=== PATIENT | female | born 1975 | race Caucasian/White ===

== ENCOUNTER 2017-08-05 19:50 | Emergency (ER) | payer MEDICAID ==
--- NOTE | 2017-08-05 20:11 | ED Physician Chart ---
ED Chief Complaint/HPI - Patient Information Date Seen:: 08/05/17 Time Seen:: 20:11 Chief Complaint:: LEFT FOOT PAIN History of Present Illness:: THIS IS A 41 YR OLD FEMALE WHO IS CONCERNED ABOUT HER LEFT FOOT SWELLING AND HURTING WITHOUT AN INJURY. THE FOOT IS NOT RED OR HOT AND THERE ARE NO OPEN WOUNDS NOTED ON THE LEFT FOOT. SHE THINKS THAT SHE MIGHT HAVE GOUT. SHE HAS A HISTORY OF HYPERTENSION BUT STOPPED TAKING HER BLOOD PRESSURE MEDICATION. SHE ADMITS TO SMOKING. Vitals:: Vital Signs - 8 hr 08/05/17 19:55 Temp 98.4 F HR 93 RR 18 BP 131/83 O2 Sat % 97 Historian:: Patient Review:: Nurse's Note Reviewed ED Review of Systems - Review of Systems General/Constitutional: No fever, No chills, No weight loss, No weakness, No diaphoresis, No edema, No loss of appetite Skin: No skin lesions, No rash, No bruising Head: No headache, No light-headedness Eyes: No loss of vision, No pain, No diplopia ENT: No earache, No nasal drainage, No sore throat, No tinnitus Neck: No neck pain, No swelling, No thyromegaly, No stiffness, No mass noted Cardio Vascular: No chest pain, No palpitations, No PND, No orthopnea, No edema Pulmonary: No SOB, No cough, No sputum, No wheezing GI: No nausea, No vomiting, No diarrhea, No pain, No melena, No hematochezia, No constipation, No hematemesis G/U: No dysuria, No frequency, No hematuria Musculoskeletal: No bone or joint pain, No back pain, No muscle pain, Other ( LEFT FOOT PAIN) Endocrine: No polyuria, No polydipsia Psychiatric: No prior psych history, No depression, No anxiety, No suicidal ideation Hematopoietic: No bruising, No lymphadenopathy Allergic/Immuno: No urticaria, No angioedema Neurological: No syncope, No focal symptoms, No weakness, No paresthesia, No headache, No seizure, No dizziness, No confusion, No vertigo ED Past Medical History - Past Medical History Obtainable: Yes Past Medical History: HTN, Other (OBESE) Family History: None Social History: Smoker, No Alcohol, No Drug Use Surgical History: other (LEFT KNEE SURGERY) Psychiatricy History: None Family Medical History - Family Member Father History Unknown: Yes Ethnicity: Non- Living Status: Still Living Hx Family Cancer: No Hx Family Coronary Artery Disease: Yes Hx Family Congestive Heart Failure: No Hx Family Hypertension: Yes Hx Family Stroke: No Hx Family Diabetes: Yes Hx Family Seizures: No Hx Family Dementia: No Hx Family AIDS: No Hx Family HIV: No Hx Family COPD: No Hx Family Hepatitis: No Hx Family Psychiatric Problems: No Hx Family Tuberculosis: No ED Physical Exam - Physical Examination General/Constitutional: Awake, Well-developed, well-nourished, Alert, No distress, GCS 15, Non-toxic appearing, Ambulatory Other Gen/Cons comments:: OBESE Head: Atraumatic Eyes: Lids, conjuctiva normal, PERRL, EOMI Skin: Nl inspection, No rash, No skin lesions, No ecchymosis, Well hydrated, No lymphadenopathy ENMT: External ears, nose nl, Nasal exam nl, Lips, teeth, gums nl Neck: Nontender, Full ROM w/o pain, No JVD, No nuchal rigidity, No bruit, No mass, No stridor Respiratory: Nl effort/Exclusion, Clear to Auscultation, No Wheeze/Rhonchi/Rales Cardio Vascular: RRR, No murmur, gallop, rubs, NL S1 S2 GI: No tenderness/rebounding/guarding, No organomegaly, No hernia, Normal BS's, Nondistended, No mass/bruits, No McBurney tenderness : No CVA tenderness Extremities: No tenderness or effusion, Full ROM, normal strength in all extremities, No edema (SMALL AMOUNT OF LEFT FOOT SWELLING), Normal digits & nails Neuro/Psych: Alert/oriented, DTR's symmetric, Normal sensory exam, Normal motor strength, Judgement/insight normal, Mood normal, Normal gait, No focal deficits Misc: Normal back, No paraspinal tenderness ED Assessment - Assessment General Assessment: LEFT FOOT PAIN ED Septic Shock - . Is Septic Shock (SBP<90, OR Lactate>4 mmol\L) present?: No - <6hrs of presentation: Vital Signs: Vital Signs - 8 hr 08/05/17 19:55 Temp 98.4 F HR 93 RR 18 BP 131/83 O2 Sat % 97 ED Reassessment (Disposition) - Reassessment Reassessment Condition:: Improved - Diagnosis Diagnosis:: LEFT FOOT PAIN - Patient Disposition Discharge/Transfer:: Elope/AWOL (THE PATIENT ELOPED BEFORE TREATMENT COULD BE COMPLETE.)
[2017-08-05 20:20] LABS: % BASOPHILS 0.3 % (0.0-2.0); % EOSINOPHILS 4.9 % (0.0-5.0); % LYMPHOCYTES 21.1 % (20.0-50.0); % MONOCYTES 4.9 % (2.0-10.0); % NEUTROPHILS 68.8 % (40.0-80.0); EOSINOPHILE ABSOLUTE 0.6 Th/cmm (0.1-0.4); HEMATOCRIT 42.2 % (41.0-60); HEMOGLOBIN 14.1 gm/dL (12-16); LYMPHOCYTE ABSOLUTE 2.4 Th/cmm (1.5-3.0); MEAN CELL VOLUME 85.8 fl (81-100); MEAN CORPUSCULAR HEMOGLOBIN 28.6 pg (27.0-31.0); MEAN CORPUSCULAR HGB CONC 33.3 pg (28.0-36.0); MEAN PLATELET VOLUME 7.6 fl; MONOCYTE ABSOLUTE 0.6 Th/cmm (0.3-1.0); NEUTROPHILE ABSOLUTE 7.8 Th/cmm (1.8-8.0); PLATELET COUNT 390 Th/cmm (150-400); RED BLOOD COUNT 4.92 Mil/cmm (3.80-5.10); RED CELL DISTRIBUTION WIDTH 13.5 % (11.5-20.0); WHITE BLOOD COUNT 11.4 Th/cmm (4.8-10.8)
[2017-08-05 20:36] LABS: ALB/GLOB RATIO 1.4 (1.0-1.8); ALBUMIN 4.3 gm/dL (3.7-5.3); ALKALINE PHOSPHATASE 75 U/L (34-104); ANION GAP 13.7 (7.0-16.0); BILIRUBIN,TOTAL 0.5 mg/dL (0.3-1.0); BUN - UREA NITROGEN 20 mg/dL (7-25); CALCIUM SERUM 9.6 mg/dL (8.6-10.3); CARBON DIOXIDE 23.7 mEq/L (21.0-31.0); CHLORIDE 103 mEq/L (98-107); CREATININE - SERUM 0.7 mg/dL (0.6-1.2); GFR AFRICAN-AMERICAN > 60.0 ml/min (>90); GFR NON AFRICAN-AMERICAN > 60.0 ml/min; GLUCOSE 116 mg/dL (70-105); POTASSIUM SERUM 3.4 mEq/L (3.5-5.1); SGOT 20 U/L (13-39); SGPT/ALT 18 U/L (7-52); SODIUM SERUM 137 mEq/L (136-145); TOTAL PROTEIN,SERUM 7.3 gm/dL (6.0-8.3); URIC ACID 7.6 mg/dL (2.3-6.6)
[2017-08-05] MEDS ORDERED: Sodium Chloride 0.9% 1,000 ML IV ONE (20:50)
== END 2017-08-05 20:50 | disposition left against medical advice (07) ==
LOC: ER 19:50
DX: M79.672 Pain in left foot (principal); I10 Essential (primary) hypertension; F17.200 Nicotine dependence, unspecified, uncomplicated; Z88.1 Allergy status to other antibiotic agents
CPT/HCPCS: 36415-UA; 80053-TC; 84550-TC; 85025-TC; Z7502

== ENCOUNTER 2017-09-09 19:35 | Emergency (ER) | payer MEDICAID ==
--- NOTE | 2017-09-09 21:26 | ED Physician Chart ---
ED Chief Complaint/HPI - Patient Information Date Seen:: 09/09/17 Time Seen:: 20:10 Chief Complaint:: LEFT ANKLE PAIN History of Present Illness:: THIS IS A 41 YR OLD FEMALE WITH RECURRENT LEFT ANKLE SWELLING AND PAIN. SHE IS CONCERNED BECAUSE IT GOT WORSE THIS PM. SHE DENIES ANY OLD OR RECENT TRAUMA. SHE DENIES HAVING ARTHRITIS. Allergies:: Allergies Allergy/AdvReac Type Severity Reaction Status Date / Time erythromycin base Allergy Verified 08/05/17 20:07 Vitals:: Vital Signs - 8 hr 09/09/17 09/09/17 19:54 21:00 Temp 98.4 F 97.8 F HR 99 88 RR 17 17 BP 146/95 144/89 O2 Sat % 98 98 Historian:: Patient Review:: Nurse's Note Reviewed, Old Chart Reviewed ED Review of Systems - Review of Systems General/Constitutional: No fever, No chills, No weight loss, No weakness, No diaphoresis, No edema, No loss of appetite Skin: No skin lesions, No rash, No bruising Head: No headache, No light-headedness Eyes: No loss of vision, No pain, No diplopia ENT: No earache, No nasal drainage, No sore throat, No tinnitus Neck: No neck pain, No swelling, No thyromegaly, No stiffness, No mass noted Cardio Vascular: No chest pain, No palpitations, No PND, No orthopnea, No edema Pulmonary: No SOB, No cough, No sputum, No wheezing GI: No nausea, No vomiting, No diarrhea, No pain, No melena, No hematochezia, No constipation, No hematemesis G/U: No dysuria, No frequency, No hematuria Musculoskeletal: No bone or joint pain (LEFT ANKLE PAIN), No back pain, No muscle pain Endocrine: No polyuria, No polydipsia Psychiatric: No prior psych history, No depression, No anxiety, No suicidal ideation Hematopoietic: No bruising, No lymphadenopathy Allergic/Immuno: No urticaria, No angioedema Neurological: No syncope, No focal symptoms, No weakness, No paresthesia, No headache, No seizure, No dizziness, No confusion, No vertigo ED Past Medical History - Past Medical History Obtainable: Yes Past Medical History: HTN Family History: None Social History: Smoker, Alcohol, No Drug Use, Other Surgical History: other (LEFT KNEE SURGERY) Psychiatricy History: None Family Medical History - Family Member Father History Unknown: Yes Ethnicity: Non- Living Status: Still Living Hx Family Cancer: No Hx Family Coronary Artery Disease: Yes Hx Family Congestive Heart Failure: No Hx Family Hypertension: Yes Hx Family Stroke: No Hx Family Diabetes: Yes Hx Family Seizures: No Hx Family Dementia: No Hx Family AIDS: No Hx Family HIV: No Hx Family COPD: No Hx Family Hepatitis: No Hx Family Psychiatric Problems: No Hx Family Tuberculosis: No ED Physical Exam - Physical Examination General/Constitutional: Awake, Well-developed, well-nourished, Alert, No distress, GCS 15, Non-toxic appearing, Ambulatory Head: Atraumatic Eyes: Lids, conjuctiva normal, PERRL, EOMI Skin: Nl inspection, No rash, No skin lesions, No ecchymosis, Well hydrated, No lymphadenopathy ENMT: External ears, nose nl, Nasal exam nl, Lips, teeth, gums nl Neck: Nontender, Full ROM w/o pain, No JVD, No nuchal rigidity, No bruit, No mass, No stridor Respiratory: Nl effort/Exclusion, Clear to Auscultation, No Wheeze/Rhonchi/Rales Cardio Vascular: RRR, No murmur, gallop, rubs, NL S1 S2 GI: No tenderness/rebounding/guarding, No organomegaly, No hernia, Normal BS's, Nondistended, No mass/bruits, No McBurney tenderness : No CVA tenderness Extremities: No tenderness or effusion, Full ROM, normal strength in all extremities, No edema, Normal digits & nails Other Extremities comments:: LEFT ANKLE SLIGHTLY SWOLLEN AND NON-TENDER. THE LEFT ANKLE HAD A NORMAL ROM WITHOUT PAIN. THE ANKLE WAS NO RED OR WARM. Neuro/Psych: Alert/oriented, DTR's symmetric, Normal sensory exam, Normal motor strength, Judgement/insight normal, Mood normal, Normal gait, No focal deficits Misc: Normal back, No paraspinal tenderness ED Labs/Radiology/EKG Results - Lab Results Results: Laboratory Tests 09/09/17 20:21 POC Ur Test Negative - Radiology Results Results: X-RAY OF THE LEFT ANKLE = NAD ED Assessment - Assessment General Assessment: LEFT ANKLE ARTHRITIS ED Septic Shock - . Is Septic Shock (SBP<90, OR Lactate>4 mmol\L) present?: No - <6hrs of presentation: Vital Signs: Vital Signs - 8 hr 09/09/17 09/09/17 19:54 21:00 Temp 98.4 F 97.8 F HR 99 88 RR 17 17 BP 146/95 144/89 O2 Sat % 98 98 ED Reassessment (Disposition) - Reassessment Reassessment Condition:: Improved - Diagnosis Diagnosis:: LEFT ANKLE PAIN - Aftercare/Follow up Instructions Aftercare/Follow-Up Instructions:: Counseled pt regarding lab results/diagnosis & need follow up, Refer to Discharge Instructions, Counseled pt & family regarding lab results/diagnosis & need follow up - Patient Disposition Discharge/Transfer:: Home Condition at Disposition:: Improved ED Discharge Plan - Patient Disposition Admit/Discharge/Transfer: PT DISCHARGED HOME Condition at Disposition: Improved Instructions: Ankle Sprain, [id number] Additional Instructions: FOLLOW UP WITH YOUR PRIMARY MEDICAL DOCTOR UMER
--- NOTE | 2017-09-10 10:30 | Diagnostic Imaging Report ---
Exam: Left ankle joint. Pain swelling. Findings: Multiple views of the left ankle joint reviewed. The study demonstrates no evidence for acute fracture or dislocation. The ankle mortise intact. Soft tissue swelling might be consistent with cellulitis. Spurring was calcaneus is noted. IMPRESSION: cellulitis left ankle joint Spurring os calcaneus.
== END 2017-09-09 21:05 | disposition home or self-care (01) ==
LOC: ER 19:35
DX: M25.572 Pain in left ankle and joints of left foot (principal); I10 Essential (primary) hypertension; F17.200 Nicotine dependence, unspecified, uncomplicated; Z88.1 Allergy status to other antibiotic agents
CPT/HCPCS: 99284; 96372; 73610; 81025; J1885; Z7502

== ENCOUNTER 2017-12-08 12:39 | Emergency (ER) | payer MEDICAID ==
--- NOTE | 2017-12-08 13:26 | ED Physician Chart ---
ED Chief Complaint/HPI - Patient Information Date Seen:: 12/08/17 Time Seen:: 13:14 Chief Complaint:: rt sided back pain History of Present Illness:: 41 yr old female with hx of chronic back pain with rt post back pain some paresthesias down the back of rt leg Allergies:: Allergies Allergy/AdvReac Type Severity Reaction Status Date / Time erythromycin base Allergy Verified 08/05/17 20:07 Vitals:: Vital Signs - 8 hr 12/08/17 12:54 Temp 97.7 F HR 92 RR 16 BP 180/80 O2 Sat % 99 ED Review of Systems - Review of Systems General/Constitutional: No fever Skin: No skin lesions Head: No headache Eyes: No loss of vision ENT: No earache Neck: No neck pain Cardio Vascular: No chest pain Pulmonary: No SOB GI: No vomiting G/U: No dysuria Musculoskeletal: Bone or joint pain, Back pain Endocrine: No polyuria Psychiatric: No depression Neurological: No syncope Family Medical History - Family Member Father History Unknown: Yes Ethnicity: Non- Living Status: Still Living Hx Family Cancer: No Hx Family Coronary Artery Disease: Yes Hx Family Congestive Heart Failure: No Hx Family Hypertension: Yes Hx Family Stroke: No Hx Family Diabetes: Yes Hx Family Seizures: No Hx Family Dementia: No Hx Family AIDS: No Hx Family HIV: No Hx Family COPD: No Hx Family Hepatitis: No Hx Family Psychiatric Problems: No Hx Family Tuberculosis: No ED Septic Shock - . Is Septic Shock (SBP<90, OR Lactate>4 mmol\L) present?: No - <6hrs of presentation: Vital Signs: Vital Signs - 8 hr 12/08/17 12:54 Temp 97.7 F HR 92 RR 16 BP 180/80 O2 Sat % 99 ED Reassessment (Disposition) - Reassessment Reassessment Condition:: Improved - Diagnosis Diagnosis:: back pain - Aftercare/Follow up Instructions Aftercare/Follow-Up Instructions:: Counseled pt regarding lab results/diagnosis & need follow up - Patient Disposition Discharge/Transfer:: Home Condition at Disposition:: Stable
== END 2017-12-08 14:17 | disposition home or self-care (01) ==
LOC: ER 12:39
DX: M54.9 Dorsalgia, unspecified (principal); G89.29 Other chronic pain; R20.2 Paresthesia of skin; Z88.1 Allergy status to other antibiotic agents
CPT/HCPCS: 99283; 96372; J1885; Z7502

== ENCOUNTER 2018-01-05 16:43 | Emergency (ER) | payer MEDICAID ==
[2018-01-05 18:09] LABS: AMPHETAMINE URINE POSITIVE (NEGATIVE); BARBITURATES URINE NEGATIVE (NEGATIVE); BENZODIAZEPINES QUAL URINE NEGATIVE (NEGATIVE); CANNABINOID THC NEGATIVE (NEGATIVE); COCAINE METABOLITE QUAL URINE NEGATIVE (NEGATIVE); METHADONE URINE NEGATIVE (NEGATIVE); METHAMPHETAMINES QUAL URINE NEGATIVE (NEGATIVE); OPIATES (MORPHINE) QUAL. URINE NEGATIVE (NEGATIVE); PHENCYCLIDINE (PCP) URINE NEGATIVE (NEGATIVE); TRICYCLICS (TCA) QUAL. URINE NEGATIVE (NEGATIVE)
[2018-01-05 18:26] LABS: URINE SOURCE CLEAN C
[2018-01-05 18:32] LABS: URINE BILIRUBIN NEGATIVE (NEGATIVE); URINE BLOOD MODERATE (NEGATIVE); URINE GLUCOSE (UA) NEGATIVE (NEGATIVE); URINE KETONE NEGATIVE (NEGATIVE); URINE LEUKOCYTE ESTERASE NEGATIVE (NEGATIVE); URINE MICROSCOPIC INDICATED? YES; URINE NITRATE NEGATIVE (NEGATIVE); URINE PROTEIN NEGATIVE (NEGATIVE); URINE UROBILINOGEN 0.2 E.U./dL (0.2 - 1.0)
[2018-01-05 18:35] LABS: URINE CLARITY CLEAR (CLEAR); URINE COLOR YELLOW
[2018-01-05 18:42] LABS: URINE BACTERIA 1+ /hpf (NONE SEEN); URINE EPITHELIAL CELLS MODERATE /lpf (FEW); URINE WBC 0-2 /hpf (0-5)
--- NOTE | 2018-01-07 08:57 | ED Physician Chart ---
ED Chief Complaint/HPI - Patient Information Date Seen:: 01/05/18 Time Seen:: 17:03 Chief Complaint:: chronic LE pain History of Present Illness:: chronic LE pain in a patient who has been last seen in a chronic pain clinic 2 years ago and said that she wanted to kill the orthopedist who told her that he wouldn't do any future surgeries on patient. stated that she was kicked out of the clinic that she usually visits by security. asked me to prescribe her sudafed for her allergies. Allergies:: Allergies Allergy/AdvReac Type Severity Reaction Status Date / Time erythromycin base Allergy Verified 08/05/17 20:07 Historian:: Patient Review:: Nurse's Note Reviewed ED Review of Systems - Review of Systems General/Constitutional: No fever, No chills, No weight loss, No weakness, No diaphoresis, No edema, No loss of appetite Skin: No skin lesions, No rash, No bruising Head: No headache, No light-headedness Eyes: No loss of vision, No pain, No diplopia ENT: No earache, No nasal drainage, No sore throat, No tinnitus Neck: No neck pain, No swelling, No thyromegaly, No stiffness, No mass noted Cardio Vascular: No chest pain, No palpitations, No PND, No orthopnea, No edema Pulmonary: No SOB, No cough, No sputum, No wheezing GI: No nausea, No vomiting, No diarrhea, No pain, No melena, No hematochezia, No constipation, No hematemesis G/U: No dysuria, No frequency, No hematuria Musculoskeletal: Bone or joint pain Endocrine: No polyuria, No polydipsia Psychiatric: No prior psych history, No depression, No anxiety, No suicidal ideation Hematopoietic: No bruising, No lymphadenopathy Allergic/Immuno: No urticaria, No angioedema Neurological: No syncope, No focal symptoms, No weakness, No paresthesia, No headache, No seizure, No dizziness, No confusion, No vertigo ED Past Medical History - Past Medical History Obtainable: Yes Past Medical History: Other (chronic pain ) Surgical History: other (left total knee replacement) Family Medical History - Family Member Father History Unknown: Yes Ethnicity: Non- Living Status: Still Living Hx Family Cancer: No Hx Family Coronary Artery Disease: Yes Hx Family Congestive Heart Failure: No Hx Family Hypertension: Yes Hx Family Stroke: No Hx Family Diabetes: Yes Hx Family Seizures: No Hx Family Dementia: No Hx Family AIDS: No Hx Family HIV: No Hx Family COPD: No Hx Family Hepatitis: No Hx Family Psychiatric Problems: No Hx Family Tuberculosis: No ED Physical Exam - Physical Examination General/Constitutional: Awake Other Gen/Cons comments:: morbidly obese patient is obviously tweaking out on suspected methamphetamine. Head: Atraumatic Eyes: Lids, conjuctiva normal Skin: No rash, No skin lesions, No ecchymosis, Well hydrated, No lymphadenopathy Other Skin comments:: well healed left knee scar ENMT: External ears, nose nl, TM canals nl Other ENMT comments:: no sinus tenderness Neck: Nontender, Full ROM w/o pain, No JVD, No nuchal rigidity, No bruit, No mass, No stridor Respiratory: Nl effort/Exclusion, Clear to Auscultation, No Wheeze/Rhonchi/Rales Cardio Vascular: RRR GI: No tenderness/rebounding/guarding, No organomegaly, No hernia, Normal BS's, Nondistended, No mass/bruits, No McBurney tenderness : No CVA tenderness Other Extremities comments:: melodramatic with respect to left knee pain. no calf tenderness. no cellulitis. no s/s of infection. Negative Drake's sign. Neuro/Psych: Alert/oriented ED Labs/Radiology/EKG Results - Lab Results Results: Laboratory Tests 01/05/18 01/05/18 01/05/18 17:00 17:00 17:20 Urine Source CLEAN C Urine Color YELLOW Urine Clarity CLEAR Urine pH 6.0 Ur Specific Ovalo 1.020 Urine Protein NEGATIVE Urine Glucose (UA) NEGATIVE Urine Ketones NEGATIVE Urine Blood MODERATE H Urine Nitrate NEGATIVE Urine Bilirubin NEGATIVE Urine Urobilinogen 0.2 Ur Leukocyte Esterase NEGATIVE Urine RBC 5-10 H Urine WBC 0-2 Ur Epithelial Cells MODERATE Urine Bacteria 1+ H POC Ur Test Negative Urine Opiates Screen NEGATIVE Urine Methadone Screen NEGATIVE Ur Barbiturates Screen NEGATIVE Ur Tricyclics Screen NEGATIVE Ur Phencyclidine Scrn NEGATIVE Amphetamines Screen POSITIVE H U Methamphetamines Scrn NEGATIVE U Benzodiazepines Scrn NEGATIVE U Cocaine Metab Screen NEGATIVE U Cannabinoids Screen NEGATIVE ED Assessment - Assessment General Assessment: patient eloped after we told her that we were waiting for her urine results. ED Septic Shock - . Is Septic Shock (SBP<90, OR Lactate>4 mmol\L) present?: No ED Reassessment (Disposition) - Reassessment Reassessment Condition:: Unchanged - Diagnosis Diagnosis:: Amphetamine use Drug seeking behavior chronic pain morbid obesity - Patient Disposition Discharge/Transfer:: Elope/AWOL Condition at Disposition:: Stable, Unchanged
== END 2018-01-05 18:15 | disposition left against medical advice (07) ==
LOC: ER 16:43
DX: M25.562 Pain in left knee (principal); G89.29 Other chronic pain; F15.10 Other stimulant abuse, uncomplicated; E66.01 Morbid (severe) obesity due to excess calories; Z76.5 Malingerer [conscious simulation]; Z88.1 Allergy status to other antibiotic agents; Z96.652 Presence of left artificial knee joint
CPT/HCPCS: 99284; 96372 ×2; 80307; 87086; 81025; 81001; J1885; J2930; Z7502

== ENCOUNTER 2018-06-27 16:02 | Emergency (ER) | payer MEDICAID ==
--- NOTE | 2018-07-12 16:17 | ER Physician Documentation ---
DATE OF SERVICE: 06/27/2018 HISTORY OF PRESENT ILLNESS: This is a 42-year-old female patient presents to the Emergency Room complaining of low back pain for 2 days. She describes the pain as sharp, musculoskeletal type in nature and denies radiation to extremities or numbness or tingliness or paresthesias. This patient denies any trauma. She denies headaches, neck pain, chest pain, shortness of breath, abdominal pain, nausea, vomiting or diarrhea. The patient was eating and urinating well. The patient denies weakness or dizziness, visual or gait changes. PAST MEDICAL HISTORY: Chronic back pain, hypertension and diabetes mellitus. MEDICATIONS: Per nurse's notes. ALLERGIES: ERYTHROMYCIN. MENSTRUAL HISTORY: Last normal menstrual period 3 days ago. The patient denies . FAMILY HISTORY: Positive for diabetes and hypertension. REVIEW OF SYSTEMS: Otherwise, essentially noncontributory. PHYSICAL EXAMINATION: GENERAL: Found the patient to be in no acute distress, alert and oriented x 3. VITAL SIGNS: Afebrile. Vital signs stable. HEENT: Unremarkable. Pupils equal, round, reactive to light. Fundi benign. Extraocular muscles and TMJs within normal limits. NECK: Supple. No meningeal signs. No cervical tenderness. CARDIOVASCULAR: Regular rate and rhythm. LUNGS: Clear with good breath sounds bilaterally. ABDOMEN: Soft, nontender, normoactive bowel sounds. No pulsatile masses. EXTREMITIES: No edema, clubbing or cyanosis. NEUROLOGIC: No focal signs. BACK: Revealed there was mild bilateral paravertebral soft tissue lumbosacral regional tenderness without loss of range of motion. Deep tendon reflexes 2+ bilaterally. Gait within normal limits. NEUROLOGIC: Good motor tendon and sensory function with neurovascular function. HOSPITAL COURSE: The patient improved and was comfortable upon discharge and asymptomatic upon discharge. Thus, the patient was discharged with a prescription for Tylenol No. 3 one tablet by mouth three times a day p.r.n. pain. Back pain care instructions given, sprains and strain care instructions given. The patient has been referred to a spinal specialist, economic development specialist or neurologist as soon as possible. Otherwise, follow up with her primary physician in one day or as needed. Aftercare instruction was given for all above diagnosis. Return to the Emergency Room as needed if concerned. FINAL DIAGNOSES: Back pain, lumbosacral strain, hypertension, diabetes mellitus, chronic knee pain and chronic back pain. [facility]# [id number]
== END 2018-06-27 16:52 | disposition home or self-care (01) ==
LOC: ER 16:02
DX: S39.012A Strain of muscle, fascia and tendon of lower back, initial encounter (principal); I10 Essential (primary) hypertension; E11.9 Type 2 diabetes mellitus without complications; G89.29 Other chronic pain; M25.569 Pain in unspecified knee; Z88.1 Allergy status to other antibiotic agents; X58.XXXA Exposure to other specified factors, initial encounter; Y93.89 Activity, other specified; Y92.89 Other specified places as the place of occurrence of the external cause; Y99.8 Other external cause status
CPT/HCPCS: Z7502

== ENCOUNTER 2018-07-06 08:08 | Emergency (ER) | payer MEDICAID ==
[2018-07-06 08:40] LABS: % BASOPHILS 0.7 % (0.0-2.0); % LYMPHOCYTES 21.5 % (20.0-50.0); % MONOCYTES 7.2 % (2.0-10.0); % NEUTROPHILS 64.6 % (40.0-80.0); BASOPHILE ABSOLUTE 0.1 Th/cumm (0-0.2); EOSINOPHILE ABSOLUTE 0.7 Th/cmm (0.1-0.4); HEMATOCRIT 42.4 % (41.0-60); HEMOGLOBIN 14.2 gm/dL (12-16); LYMPHOCYTE ABSOLUTE 2.5 Th/cmm (1.5-3.0); MEAN CELL VOLUME 87.4 fl (81-100); MEAN CORPUSCULAR HEMOGLOBIN 29.3 pg (27.0-31.0); MEAN CORPUSCULAR HGB CONC 33.5 pg (28.0-36.0); MEAN PLATELET VOLUME 7.5 fl; MONOCYTE ABSOLUTE 0.8 Th/cmm (0.3-1.0); NEUTROPHILE ABSOLUTE 7.4 Th/cmm (1.8-8.0); PLATELET COUNT 438 Th/cmm (150-400); RED BLOOD COUNT 4.85 Mil/cmm (3.80-5.10); RED CELL DISTRIBUTION WIDTH 12.2 % (11.5-20.0); WHITE BLOOD COUNT 11.5 Th/cmm (4.8-10.8)
[2018-07-06 08:51] LABS: ALB/GLOB RATIO 1.3 (1.0-1.8); ALBUMIN 4.1 gm/dL (3.7-5.3); ALKALINE PHOSPHATASE 72 U/L (34-104); ANION GAP 13.6 (7.0-16.0); BILIRUBIN,TOTAL 0.4 mg/dL (0.3-1.0); BUN - UREA NITROGEN 16 mg/dL (7-25); CALCIUM SERUM 9.8 mg/dL (8.6-10.3); CARBON DIOXIDE 23.5 mEq/L (21.0-31.0); CHLORIDE 102 mEq/L (98-107); CREATININE - SERUM 0.8 mg/dL (0.6-1.2); GFR AFRICAN-AMERICAN > 60.0 ml/min (>90); GFR NON AFRICAN-AMERICAN > 60.0 ml/min; GLUCOSE 145 mg/dL (70-105); POTASSIUM SERUM 4.1 mEq/L (3.5-5.1); SGOT 14 U/L (13-39); SGPT/ALT 14 U/L (7-52); SODIUM SERUM 135 mEq/L (136-145); TOTAL PROTEIN,SERUM 7.2 gm/dL (6.0-8.3)
--- NOTE | 2018-07-06 08:52 | ED Physician Chart ---
ED Chief Complaint/HPI - Patient Information Date Seen:: 07/06/18 Time Seen:: 08:46 Chief Complaint:: both legs are swollen History of Present Illness:: this is a 42 yo female who has been here many times with lower extremity complaints. she is a known meth user. she denies all other problems. Allergies:: Allergies Allergy/AdvReac Type Severity Reaction Status Date / Time erythromycin base Allergy Verified 08/05/17 20:07 Vitals:: Vital Signs - 8 hr 07/06/18 08:20 Temp 99.4 F HR 88 RR 17 BP 107/68 O2 Sat % 96 Historian:: Patient Review:: Nurse's Note Reviewed, Old Chart Reviewed ED Review of Systems - Review of Systems General/Constitutional: No fever, No chills, No weight loss, No weakness, No diaphoresis, No edema, No loss of appetite, Other (obese) Skin: No skin lesions, No rash, No bruising Head: No headache, No light-headedness Eyes: No loss of vision, No pain, No diplopia ENT: No earache, No nasal drainage, No sore throat, No tinnitus Neck: No neck pain, No swelling, No thyromegaly, No stiffness, No mass noted Cardio Vascular: No chest pain, No palpitations, No PND, No orthopnea, No edema Pulmonary: No SOB, No cough, No sputum, No wheezing GI: No nausea, No vomiting, No diarrhea, No pain, No melena, No hematochezia, No constipation, No hematemesis G/U: No dysuria, No frequency, No hematuria Musculoskeletal: No bone or joint pain, No back pain, No muscle pain, Other ( the legs are not swollen and the range of motion is normal without pain.) Endocrine: No polyuria, No polydipsia Psychiatric: No prior psych history, No depression, No anxiety, No suicidal ideation Hematopoietic: No bruising, No lymphadenopathy Allergic/Immuno: No urticaria, No angioedema Neurological: No syncope, No focal symptoms, No weakness, No paresthesia, No headache, No seizure, No dizziness, No confusion, No vertigo ED Past Medical History - Past Medical History Obtainable: Yes Past Medical History: HTN, DM Family History: None Social History: Non Smoker, No Alcohol, Illicit Drug Use (meth) Surgical History: other (knee surgery) Family Medical History - Family Member Father History Unknown: Yes Ethnicity: Non- Living Status: Still Living Hx Family Cancer: No Hx Family Coronary Artery Disease: Yes Hx Family Congestive Heart Failure: No Hx Family Hypertension: Yes Hx Family Stroke: No Hx Family Diabetes: Yes Hx Family Seizures: No Hx Family Dementia: No Hx Family AIDS: No Hx Family HIV: No Hx Family COPD: No Hx Family Hepatitis: No Hx Family Psychiatric Problems: No Hx Family Tuberculosis: No ED Physical Exam - Physical Examination General/Constitutional: Awake, Well-developed, well-nourished, Alert, No distress, GCS 15, Non-toxic appearing, Ambulatory Other Gen/Cons comments:: obese Head: Atraumatic Eyes: Lids, conjuctiva normal, PERRL, EOMI Skin: Nl inspection, No rash, No skin lesions, No ecchymosis, Well hydrated, No lymphadenopathy ENMT: External ears, nose nl, Nasal exam nl, Lips, teeth, gums nl Neck: Nontender, Full ROM w/o pain, No JVD, No nuchal rigidity, No bruit, No mass, No stridor Respiratory: Nl effort/Exclusion, Clear to Auscultation, No Wheeze/Rhonchi/Rales Cardio Vascular: RRR, No murmur, gallop, rubs, NL S1 S2 GI: No tenderness/rebounding/guarding, No organomegaly, No hernia, Normal BS's, Nondistended, No mass/bruits, No McBurney tenderness : No CVA tenderness Extremities: No tenderness or effusion, Full ROM, normal strength in all extremities, No edema, Normal digits & nails Neuro/Psych: Alert/oriented, DTR's symmetric, Normal sensory exam, Normal motor strength, Judgement/insight normal, Mood normal, Normal gait, No focal deficits Misc: Normal back, No paraspinal tenderness ED Assessment - Assessment General Assessment: obesity, leg pain ED Septic Shock - . Is Septic Shock (SBP<90, OR Lactate>4 mmol\L) present?: No - <6hrs of presentation: Vital Signs: Vital Signs - 8 hr 07/06/18 08:20 Temp 99.4 F HR 88 RR 17 BP 107/68 O2 Sat % 96 ED Reassessment (Disposition) - Reassessment Reassessment Condition:: Unchanged - Diagnosis Diagnosis:: bilateral leg pain - Aftercare/Follow up Instructions Aftercare/Follow-Up Instructions:: Counseled pt regarding lab results/diagnosis & need follow up, Refer to Discharge Instructions, Counseled pt & family regarding lab results/diagnosis & need follow up - Patient Disposition Discharge/Transfer:: Home Condition at Disposition:: Unchanged
== END 2018-07-06 09:20 | disposition home or self-care (01) ==
LOC: ER 08:08
DX: M79.605 Pain in left leg (principal); M79.604 Pain in right leg; M79.89 Other specified soft tissue disorders; I10 Essential (primary) hypertension; E11.9 Type 2 diabetes mellitus without complications; Z88.1 Allergy status to other antibiotic agents
CPT/HCPCS: 36415-UA; 80053-TC; 84443-TC; 85025-TC; Z7502

== ENCOUNTER 2018-11-06 10:11 | Emergency (ER) | payer MEDICAID ==
--- NOTE | 2018-11-06 10:51 | ED Physician Chart ---
ED Chief Complaint/HPI - Patient Information Date Seen:: 11/06/18 Time Seen:: 10:10 Chief Complaint:: Fever History of Present Illness:: onset x 3 days of fever, S/T, sinus H/As, cough, and congestion; pt denies trauma, LOC, ALOC, AMS, visual or gait changes, weakness, dizziness, paresthesias, vertigo, E/As, neck pain, C/P, SOB, Abd. Pain, A/N/V/D/C, chills, or urinary s/s; LNMP: 11/04/18; pt denies ; pt is eating and urinating well; pt last urinated one hour [employer]SPORTATION [employer]ER Allergies:: Allergies Allergy/AdvReac Type Severity Reaction Status Date / Time erythromycin base Allergy Verified 11/06/18 10:23 Vitals:: Vital Signs - 8 hr 11/06/18 10:12 Temp 97.2 F HR 93 RR 18 BP 143/90 O2 Sat % 98 Historian:: Patient Review:: Nurse's Note Reviewed, Old Chart Reviewed ED Review of Systems - Review of Systems General/Constitutional: Fever, No chills, No weight loss, No weakness, No diaphoresis, No edema, No loss of appetite Skin: No skin lesions, No rash, No bruising Head: Headache, No light-headedness Eyes: No loss of vision, No pain, No diplopia ENT: No earache, Nasal drainage, No sore throat, No tinnitus Neck: No neck pain, No swelling, No thyromegaly, No stiffness, No mass noted Cardio Vascular: No chest pain, No palpitations, No PND, No orthopnea, No edema Pulmonary: No SOB, No cough, No sputum, No wheezing GI: No nausea, No vomiting, No diarrhea, No pain, No melena, No hematochezia, No constipation, No hematemesis G/U: No dysuria, No frequency, No hematuria, No nacturia Cutter Barrel Drum: No vaginal discharge, No abnormal vaginal bleed, No contraction Musculoskeletal: No bone or joint pain, No back pain, No muscle pain Endocrine: No polyuria, No polydipsia Psychiatric: No prior psych history, No depression, No anxiety, No suicidal ideation, No homicidal ideation, No auditory hallucination, No visual hallucination Hematopoietic: No bruising, No lymphadenopathy Allergic/Immuno: No urticaria, No angioedema Neurological: No syncope, No focal symptoms, No weakness, No paresthesia, Headache, No seizure, No dizziness, No confusion, No vertigo ED Past Medical History - Past Medical History Obtainable: Yes Past Medical History: HTN, DM Family History: Diabetes Melitus, HTN Social History: Non Smoker, No Alcohol, No Drug Use, Surgical History: None Psychiatricy History: None Medication: Reviewed Family Medical History - Family Member Father History Unknown: Yes Ethnicity: Non- Living Status: Still Living Hx Family Cancer: No Hx Family Coronary Artery Disease: Yes Hx Family Congestive Heart Failure: No Hx Family Hypertension: Yes Hx Family Stroke: No Hx Family Diabetes: Yes Hx Family Seizures: No Hx Family Dementia: No Hx Family AIDS: No Hx Family HIV: No Hx Family COPD: No Hx Family Hepatitis: No Hx Family Psychiatric Problems: No Hx Family Tuberculosis: No ED Physical Exam - Physical Examination General/Constitutional: Awake, Well-developed, well-nourished, Alert, No distress, GCS 15, Non-toxic appearing, Ambulatory Head: Atraumatic Eyes: Lids, conjuctiva normal, PERRL, EOMI Other Eyes comments:: PERRLA; Fundi: benign; EOMs: WNL Skin: Nl inspection, No rash, No skin lesions, No ecchymosis, Well hydrated, No lymphadenopathy Other Skin comments:: good turgor with MMM ENMT: External ears, nose nl, TM canals nl, Nasal exam nl, Lips, teeth, gums nl , Tonsils nl Other ENMT comments:: TMJs: WNL; + Maxillary Sinus Tenderness; + Nasal Congestion; Pharynx: injected; no exudates; no abscesses; no FBs; no airway obstruction Neck: Nontender, Full ROM w/o pain, No JVD, No nuchal rigidity, No bruit, No mass, No stridor Other Neck comments:: supple; no meningeal signs; no cervical tenderness; no bruits Respiratory: Nl effort/Exclusion, Clear to Auscultation, No Wheeze/Rhonchi/Rales Cardio Vascular: RRR, No murmur, gallop, rubs, NL S1 S2, Carotid/Femoral/Distal pulses equal bilaterally GI: No tenderness/rebounding/guarding, No organomegaly, No hernia, Normal BS's, Nondistended, No mass/bruits, No McBurney tenderness, Rectum exam nl Other GI comments:: no pulsatile masses : No CVA tenderness Extremities: No tenderness or effusion, Full ROM, normal strength in all extremities, No edema, Normal digits & nails Neuro/Psych: Alert/oriented, DTR's symmetric, Normal sensory exam, Normal motor strength, Judgement/insight normal, Mood normal, Normal gait, No focal deficits Other Neuro/Psych comments:: no focal signs Misc: Normal back, No paraspinal tenderness ED Labs/Radiology/EKG Results - Radiology Results Comments:: deferred by pt ED Septic Shock - . Is Septic Shock (SBP<90, OR Lactate>4 mmol\L) present?: No - <6hrs of presentation: Vital Signs: Vital Signs - 8 hr 11/06/18 10:12 Temp 97.2 F HR 93 RR 18 BP 143/90 O2 Sat % 98 ED Reassessment (Disposition) - Reassessment Reassessment:: pt tolerated po fluids well in ER; pt is asymptomatic upon discharge Reassessment Condition:: Improved - Diagnosis Diagnosis:: Congestion; Headaches; Sinus Headaches; Sinusitis; Cough; Bronchitis; Sore Throat; Pharyngitis; Hypertension; Diabetes Mellitus; Fever; URI - Aftercare/Follow up Instructions Aftercare/Follow-Up Instructions:: Counseled pt regarding lab results/diagnosis & need follow up, Refer to Discharge Instructions, Counseled pt & family regarding lab results/diagnosis & need follow up Notes:: Have Blood pressure re-checked in one day by PMD Medication Prescribed:: Rx: Amoxicillin 500mg po tid x 10 days; Tylenol 500mg po qid prn fever/pain/H/As ; Salt Water Gargles; Cool Mist Vaporizer; Fluids; take all medications as prescribed - Patient Disposition Discharge/Transfer:: Home Condition at Disposition:: Stable, Improved (RTER prn if existing s/s reoccur and/or get worse and/or any other new s/s occur; ACIs given for all above Dx; Refer to ENT Specialist/Neurologist/Ratoprinter UMER; F/U with PMD in one day or prn; RTER prn if concerned)
== END 2018-11-06 10:40 | disposition home or self-care (01) ==
LOC: ER 10:11
DX: J40 Bronchitis, not specified as acute or chronic (principal); I10 Essential (primary) hypertension; E11.9 Type 2 diabetes mellitus without complications; J06.9 Acute upper respiratory infection, unspecified; J32.9 Chronic sinusitis, unspecified; R51 Headache; Z88.1 Allergy status to other antibiotic agents
CPT/HCPCS: Z7502